=== PATIENT | female | born 1940 | race African-American/Black ===

== ENCOUNTER 2022-02-09 14:11 | Emergency (ER) | payer MEDICARE ==
[~2022-02-09] VITALS: Ht 154.9 cm; Wt 61.0 kg
[2022-02-09 14:14] VITALS: BP 154/78
[2022-02-09 15:12] LABS: BASOPHILS % 0.8 % (0.0-2.0); EOSINOPHILS % 2.2 % (0.0-5.0); HEMATOCRIT. 34.8 % (36.0-48.0); HEMOGLOBIN. 11.2 g/dL (12.0-16.0); LYMPHOCYTES % 25.5 % (20.0-50.0); MEAN CORPUSCULAR HEMOGLOBIN 27.4 pg (28.0-32.0); MEAN CORPUSCULAR VOLUME 85.3 fL (81.0-99.0); MEAN PLATELET VOLUME 8.2 fl (7.4-10.4); MONOCYTES % 8.2 % (2.0-8.0); NEUTROPHILS % 63.3 % (40.0-76.0); PLATELET 192 x1000/uL (130-400); RED BLOOD CELL COUNT 4.08 mill/uL (4.2-5.4); RED CELL DISTRIBUTION WIDTH 13.6 % (11.6-14.6)
[2022-02-09 15:20] LABS: CHLORIDE 105 mEq/L (98-107)
== END 2022-02-09 16:10 | disposition home or self-care (01) ==
LOC: ER 14:11
DX: R07.89 Other chest pain (principal); I10 Essential (primary) hypertension
CPT/HCPCS: 36415; 71045; 80053; 84484; 85025; 93005; 99285